=== PATIENT | female | born 1965 | race Caucasian/White ===

== ENCOUNTER 2021-07-08 15:40 | Inpatient (IN) ==
[2021-07-08 16:38] LABS: Basophils % 0.3 %; Eosinophils # 0.2 K/mcL (0.0-0.6); Eosinophils % 2.2 %; Hematocrit 31.1 % (35.3-44.9); Hemoglobin 10.1 g/dL (11.5-15.4); Immature Granulocytes % 0.2 % (0-4); Lymphocytes # 2.2 K/mcL (0.6-4.6); Lymphocytes % 24.7 %; Mean Corpuscular HGB Conc 32.5 g/dL (31.6-35.5); Mean Corpuscular Hemoglobin 28.5 pg (28.0-33.3); Mean Corpuscular Volume 87.9 fL (83.0-100.0); Mean Platelet Volume 10.2 fL (9.4-12.4); Monocytes # 0.6 K/mcL (0.0-1.3); Monocytes % 6.7 %; Neutrophils # 5.9 K/mcL (1.6-8.9); Platelet Count 242 K/mcL (140-400); Red Blood Count 3.54 M/mcL (3.82-4.97); Red Cell Distribution Width 14.2 % (11.5-14.5); Segmented Neutrophils % 65.9 %; White Blood Count 8.9 K/mcL (4.3-11.1)
[2021-07-08 16:41] LABS: INR 1.1; Prothrombin Time 12.5 Seconds (9.4-12.1)
[2021-07-08 16:44] LABS: Activated Partial Thrombo Time 37.7 Seconds (26.0-36.0)
[2021-07-08 16:59] LABS: Troponin I < 0.03 ng/mL (< 0.04)
[2021-07-08 17:08] LABS: Alanine Aminotransferase 6 Units/L (7-52); Albumin 2.8 g/dL (3.5-5.7); Alkaline Phosphatase 76 Units/L (34-104); Aspartate Amino Transferase 9 Units/L (13-39); BUN/Creatinine Ratio 24 (6-26); Bilirubin,Total 0.2 mg/dL (0.3-1.0); Blood Urea Nitrogen 18 mg/dL (6-20); Calcium 8.2 mg/dL (8.6-10.3); Carbon Dioxide 26 mEq/L (23-29); Chloride 105 mEq/L (98-107); Globulin 2.9 g/dL (2.4-3.5); Glucose 124 mg/dL (70-105); Magnesium 1.6 mg/dL (1.6-2.6); Osmolality,Calculated 287 (280-300); Phosphorous 3.7 mg/dL (2.7-4.5); Potassium 3.7 mEq/L (3.5-5.1); Sodium 137 mEq/L (136-145); Total Protein 5.7 g/dL (6.4-8.9); eGFR For African Americans > 60 (> 60); eGFR For Non-African Americans > 60 (> 60)
[2021-07-08 18:45] LABS: Bilirubin,Urine Negative (Negative); Blood,Urine Trace-intact (Negative); Clarity,Urine Slightly Cloudy (Clear); Color,Urine Yellow (Yellow); Glucose,Urine (UA) Normal (Normal); Ketones,Urine Negative (Negative); Leukocyte Esterase,Urine Negative (Negative); Nitrite,Urine Negative (Negative); Protein,Urine 100 mg/dL (Neg-Trace); Urobilinogen,Urine Normal (Normal)
[2021-07-08 18:46] LABS: Amorphous Sediment,Urine Few per hpf (None-Few); RBC,Urine 0-3 per hpf (0-3); Squamous Epithelial Cell,Urine Few per hpf (None-Few)
[2021-07-08] MEDS ORDERED: Naloxone 0.4 MG/ML INJ IVP PRN (19:13)
[2021-07-08] MEDS ORDERED: Ondansetron ODT 4 MG TAB.RAPDIS SL PRN (19:13)
[2021-07-08] MEDS ORDERED: Divalproex (12 HR) 250 MG TABLET PO SCH (20:00)
[2021-07-08] MEDS: 0.9 % Sodium Chloride 1,000 ML IVC SCH (20:04)
[2021-07-08] MEDS: Dulaglutide [Trulicity] 0.75 MG/0.5 ML Pen.Injctr SQ SCH (20:08)
[2021-07-08] MEDS: Topiramate 25 MG TABLET PO SCH (21:20)
[2021-07-09 04:39] LABS: Basophils % 0.2 %; Eosinophils # 0.2 K/mcL (0.0-0.6); Eosinophils % 1.9 %; Hematocrit 30.1 % (35.3-44.9); Hemoglobin 9.9 g/dL (11.5-15.4); Immature Granulocytes % 0.2 % (0-4); Lymphocytes % 20.1 %; Mean Corpuscular HGB Conc 32.9 g/dL (31.6-35.5); Mean Corpuscular Hemoglobin 28.4 pg (28.0-33.3); Mean Corpuscular Volume 86.2 fL (83.0-100.0); Monocytes # 0.7 K/mcL (0.0-1.3); Monocytes % 6.7 %; Neutrophils # 7.1 K/mcL (1.6-8.9); Platelet Count 232 K/mcL (140-400); Red Blood Count 3.49 M/mcL (3.82-4.97); Red Cell Distribution Width 14.2 % (11.5-14.5); Segmented Neutrophils % 70.9 %
[2021-07-09 04:53] LABS: BUN/Creatinine Ratio 30 (6-26); Blood Urea Nitrogen 15 mg/dL (6-20); Carbon Dioxide 24 mEq/L (23-29); Chloride 110 mEq/L (98-107); Glucose 116 mg/dL (70-105); Osmolality,Calculated 286 (280-300); Potassium 3.7 mEq/L (3.5-5.1); Sodium 137 mEq/L (136-145); eGFR For African Americans > 60 (> 60); eGFR For Non-African Americans > 60 (> 60)
[2021-07-09] MEDS ORDERED: *HR* Metformin 500 MG TABLET PO SCH (08:00)
[2021-07-09] MEDS ORDERED: Insulin DETEMIR 100 UNIT/ML X5UNITS SUBQ SCH ×2 (09:00→21:00)
[2021-07-09] MEDS ORDERED: Dextrose 4 GM Chewable Tablets PO PRN ×2 (09:32)
[2021-07-09] MEDS ORDERED: D5% in Water 1,000 ML IVC PRN (09:32)
[2021-07-09] MEDS ORDERED: *HR* Dextrose 50 % in Water (Syg) 50 ML SYRINGE IVP PRN (09:32)
[2021-07-09] MEDS ORDERED: Insulin DETEMIR 100 UNIT/ML per UNIT SUBQ ONE (09:45)
[2021-07-09] MEDS: Insulin LISPRO 300 UNITS/3 ML VIAL SUBQ SCH ×3 (12:47→21:05)
[2021-07-09 14:07] LABS: Estimated Average Glucose 220 mg/dl; Hemoglobin A1C 9.3 %
[2021-07-09] MEDS ORDERED: Isovue-370 500 ML BOTTLE IVP ONE ×2 (16:07→16:16)
[2021-07-09] MEDS: 0.9 % Sodium Chloride 1,000 ML IVC SCH (16:08)
[2021-07-09] MEDS: Acetaminophen/Butalbital/CaffeineTABLET PO PRN (16:09)
[2021-07-09] MEDS: Aspirin 81 MG TAB.CHEW PO SCH (16:29)
[2021-07-09] MEDS: Dulaglutide [Trulicity] 0.75 MG/0.5 ML Pen.Injctr SQ SCH (17:57)
[2021-07-09] MEDS: Nicotine 14 MG PATCH.TD24 TD SCH (21:09)
[2021-07-09] MEDS: Topiramate 25 MG TABLET PO SCH (21:09)
[2021-07-10] MEDS: Acetaminophen/Butalbital/CaffeineTABLET PO PRN (05:43)
[2021-07-10] MEDS: Aspirin 81 MG TAB.CHEW PO SCH (08:25)
[2021-07-10] MEDS: Insulin LISPRO 300 UNITS/3 ML VIAL SUBQ SCH ×5 (08:25→20:45)
[2021-07-10] MEDS: Nicotine 14 MG PATCH.TD24 TD SCH (08:25)
[2021-07-10] MEDS ORDERED: Melatonin 3 MG TABLET PO PRN (17:20)
[2021-07-10] MEDS: Topiramate 25 MG TABLET PO SCH (20:59)
[2021-07-10] MEDS: Dulaglutide [Trulicity] 0.75 MG/0.5 ML Pen.Injctr SQ SCH (22:18)
[2021-07-11 05:59] LABS: Basophils % 0.5 %; Eosinophils # 0.2 K/mcL (0.0-0.6); Eosinophils % 2.9 %; Hematocrit 30.9 % (35.3-44.9); Hemoglobin 10.2 g/dL (11.5-15.4); Immature Granulocytes % 0.4 % (0-4); Lymphocytes # 1.6 K/mcL (0.6-4.6); Lymphocytes % 20.5 %; Mean Corpuscular Hemoglobin 28.3 pg (28.0-33.3); Mean Corpuscular Volume 85.8 fL (83.0-100.0); Mean Platelet Volume 10.1 fL (9.4-12.4); Monocytes # 0.6 K/mcL (0.0-1.3); Monocytes % 7.9 %; Neutrophils # 5.4 K/mcL (1.6-8.9); Platelet Count 253 K/mcL (140-400); Red Cell Distribution Width 14.1 % (11.5-14.5); Segmented Neutrophils % 67.8 %
[2021-07-11] MEDS ORDERED: *HR* Enoxaparin 40 MG/0.4 ML SYRINGE SQ SCH (06:00)
[2021-07-11 06:18] LABS: BUN/Creatinine Ratio 30 (6-26); Blood Urea Nitrogen 17 mg/dL (6-20); Calcium 8.1 mg/dL (8.6-10.3); Carbon Dioxide 25 mEq/L (23-29); Chloride 107 mEq/L (98-107); Glucose 307 mg/dL (70-105); Osmolality,Calculated 297 (280-300); Potassium 4.3 mEq/L (3.5-5.1); Sodium 137 mEq/L (136-145); eGFR For African Americans > 60 (> 60); eGFR For Non-African Americans > 60 (> 60)
[2021-07-11] MEDS: Aspirin 81 MG TAB.CHEW PO SCH (08:25)
[2021-07-11] MEDS: Insulin LISPRO 300 UNITS/3 ML VIAL SUBQ SCH (08:26)
[2021-07-11] MEDS: Nicotine 14 MG PATCH.TD24 TD SCH (08:26)
[2021-07-11] MEDS ORDERED: Insulin LISPRO 300 UNITS/3 ML VIAL SUBQ SCH ×2 (09:23)
[2021-07-11] MEDS ORDERED: Metoprolol XL (24 HR) Succ 25 MG TAB.ER.24H PO SCH (10:32)
[2021-07-11 12:18] VITALS: BP 155/82; PULSE 85; RESP 17; TEMP 98; O2SAT 100
== END 2021-07-11 15:36 | disposition short-term general hospital (02) | DRG 57 ==
LOC: EMEROOGRE 15:40 → INPGRE 15:40
PROVIDERS: ADMIT Family Medicine; ATTEND Family Medicine